=== PATIENT | male | born 1975 | race Caucasian/White ===

== ENCOUNTER 2021-05-15 12:35 | Inpatient (IN) | payer OTHER ==
[2021-05-15 13:42] VITALS: BMI 22.4
[2021-05-15] MEDS ORDERED: ACETAMINOPHEN 325 MG TABLET (FP) PO PRN (14:03)
[2021-05-15] MEDS ORDERED: MAGNESIUM HYDROX 2400MG/30ML ORAL SUSPENSION 30 ML CUP PO PRN (14:03)
[2021-05-15] MEDS ORDERED: MAGNESIUM CITRATE 300 ML BOTTLE PO PRN (14:03)
[2021-05-15] MEDS ORDERED: LOPERAMIDE HCL 2 MG CAPSULE PO PRN (14:03)
[2021-05-15] MEDS ORDERED: NICOTINE 10 MG CARTRIDGE (INHALER) IH PRN (14:03)
[2021-05-15] MEDS ORDERED: guaiFENesin 200 MG/10 ML 10 ML UNIT-DOSE CUPS PO PRN (14:03)
[2021-05-15] MEDS ORDERED: P-EPHED 60MG/TRIPROLIDI 2.5MG TABLET PO PRN (14:03)
[2021-05-15] MEDS ORDERED: MAG HYDROX/AL HYDROX/SIMETH 30 ML UNIT-DOSE CUP PO PRN (14:03)
[2021-05-15] MEDS: hydrOXYzine PAMOATE 25 MG CAPSULE (FP) PO SCH ×2 (19:10→22:18)
[2021-05-15] MEDS: THIAMINE HCL 100 MG TABLET (FP) PO SCH (22:18)
[2021-05-15] MEDS: MELATONIN 5 MG TABLETS PO SCH (22:18)
[2021-05-16] MEDS: hydrOXYzine PAMOATE 25 MG CAPSULE (FP) PO SCH (06:23)
[2021-05-16] MEDS ORDERED: methaDONE HCL 10 MG TABLET PO SCH (06:30)
[2021-05-16] MEDS ORDERED: methaDONE HCL 40 MG DISPERSABLE TABLET ONE (06:45)
[2021-05-16] MEDS ORDERED: methaDONE HCL 10 MG TABLET ONE (06:45)
[2021-05-16] MEDS: PRENATAL VITAMINS W/ FOLIC ACID TABLET (FP) PO SCH (09:20)
[2021-05-16] MEDS: NICOTINE 7 MG/24 HOURS TOPICAL PATCH TD SCH (09:22)
[2021-05-16 11:05] LABS: HEMATOCRIT 44.4 % (35.4-49); HEMOGLOBIN 14.9 GM/dL (11.7-16.9); MCHC 33.5 g/dl (32.0-35.9); MEAN CELL VOLUME 83.4 fl (80-96); MEAN PLT VOLUME 7.6 fl (7.5-11.1); PLATELET COUNT 1017 10^3/uL (134-434); RBC 5.32 M/mm3 (4.00-5.60); RDW 15.2 % (11.9-15.9); WHITE BLOOD COUNT 13.3 K/mm3 (4.0-10.0)
[2021-05-16 11:08] LABS: ALBUMIN 3.3 g/dl (3.4-5.0)
[2021-05-16 11:09] LABS: CALCIUM 9.7 mg/dL (8.5-10.1)
[2021-05-16 11:13] LABS: BILIRUBIN,TOTAL 0.5 mg/dL (0.2-1); TOT PROT 7.7 g/dl (6.4-8.2)
[2021-05-16] MEDS ORDERED: TUBERCULIN PPD 5 TU/0.1ML VIAL ID ONE (11:34)
[2021-05-16 13:13] LABS: SYPHILIS W/ RPR CONF NON-REACTIVE (NONREACTIVE)
[2021-05-16] MEDS: THIAMINE HCL 100 MG TABLET (FP) PO SCH (21:15)
[2021-05-16] MEDS: MELATONIN 5 MG TABLETS PO SCH (21:15)
[2021-05-17] MEDS ORDERED: methaDONE HCL 40 MG DISPERSABLE TABLET ONE (03:08)
[2021-05-17] MEDS ORDERED: methaDONE HCL 10 MG TABLET ONE (03:08)
[2021-05-17] MEDS: NICOTINE 7 MG/24 HOURS TOPICAL PATCH TD SCH (09:45)
[2021-05-17] MEDS: PRENATAL VITAMINS W/ FOLIC ACID TABLET (FP) PO SCH (09:45)
[2021-05-17] MEDS ORDERED: MENTHOL/PHENOL 1 EACH UD MM PRN (10:41)
[2021-05-17] MEDS: METHOCARBAMOL 500 MG TABLET PO PRN (17:12)
[2021-05-17 17:51] LABS: URINE APPEARANCE CLEAR; URINE BILIRUBIN NEGATIVE (NEGATIVE); URINE COLOR YELLOW; URINE GLUCOSE (UA) NEGATIVE (NEGATIVE); URINE KETONE NEGATIVE (NEGATIVE); URINE LEUK ESTERASE NEGATIVE (NEGATIVE); URINE NITRITE NEGATIVE (NEGATIVE); URINE PROTEIN NEGATIVE (NEGATIVE); URINE UROBILINOGEN 0.2 mg/dL (0.2-1.0)
[2021-05-17] MEDS: MELATONIN 5 MG TABLETS PO SCH (21:12)
[2021-05-17] MEDS: THIAMINE HCL 100 MG TABLET (FP) PO SCH (21:12)
[2021-05-17] MEDS: hydrOXYzine PAMOATE 25 MG CAPSULE (FP) PO PRN (21:13)
[2021-05-18] MEDS ORDERED: methaDONE HCL 10 MG TABLET ONE (03:47)
[2021-05-18] MEDS ORDERED: methaDONE HCL 40 MG DISPERSABLE TABLET ONE (03:47)
[2021-05-18] MEDS: PRENATAL VITAMINS W/ FOLIC ACID TABLET (FP) PO SCH (09:26)
[2021-05-18] MEDS: NICOTINE 7 MG/24 HOURS TOPICAL PATCH TD SCH (09:27)
[2021-05-18] MEDS: METHOCARBAMOL 500 MG TABLET PO PRN ×2 (09:27→17:33)
[2021-05-18 10:34] LABS: BASO % 0.8 % (0-2.0); EOS % 3.2 % (0-4.5); HEMATOCRIT 44.2 % (35.4-49); HEMOGLOBIN 14.9 GM/dL (11.7-16.9); LYMPH % 35.7 % (8-40); MCH 27.6 pg (25.7-33.7); MCHC 33.7 g/dl (32.0-35.9); MEAN PLT VOLUME 7.4 fl (7.5-11.1); MONO % 11.1 % (3.8-10.2); NEUT % 49.2 % (42.8-82.8); PLATELET COUNT 947 10^3/uL (134-434); RBC 5.39 M/mm3 (4.00-5.60); RDW 15.4 % (11.9-15.9); WHITE BLOOD COUNT 9.8 K/mm3 (4.0-10.0)
[2021-05-18] MEDS ORDERED: PT OWN MED DRAWER 7, Y5N ONE (15:15)
[2021-05-18] MEDS: MUPIROCIN 2% TOPICAL OINTMENT 22 GM TUBE TP SCH ×2 (15:16→23:32)
[2021-05-18] MEDS: THIAMINE HCL 100 MG TABLET (FP) PO SCH (21:12)
[2021-05-18] MEDS: hydrOXYzine PAMOATE 25 MG CAPSULE (FP) PO PRN (21:12)
[2021-05-18] MEDS: MELATONIN 5 MG TABLETS PO SCH (21:12)
[2021-05-19] MEDS ORDERED: methaDONE HCL 10 MG TABLET ONE (03:04)
[2021-05-19] MEDS ORDERED: methaDONE HCL 40 MG DISPERSABLE TABLET ONE (03:04)
[2021-05-19] MEDS: PRENATAL VITAMINS W/ FOLIC ACID TABLET (FP) PO SCH (09:38)
[2021-05-19] MEDS: NICOTINE 7 MG/24 HOURS TOPICAL PATCH TD SCH (09:38)
[2021-05-19] MEDS: MUPIROCIN 2% TOPICAL OINTMENT 22 GM TUBE TP SCH ×2 (09:38→21:29)
[2021-05-19] MEDS: METHOCARBAMOL 500 MG TABLET PO PRN ×2 (09:39→21:29)
[2021-05-19] MEDS: MELATONIN 5 MG TABLETS PO SCH (21:29)
[2021-05-19] MEDS: THIAMINE HCL 100 MG TABLET (FP) PO SCH (21:29)
[2021-05-19] MEDS: hydrOXYzine PAMOATE 25 MG CAPSULE (FP) PO PRN (21:30)
[2021-05-20] MEDS ORDERED: methaDONE HCL 10 MG TABLET ONE (03:10)
[2021-05-20] MEDS ORDERED: methaDONE HCL 40 MG DISPERSABLE TABLET ONE (03:10)
[2021-05-20] MEDS: PRENATAL VITAMINS W/ FOLIC ACID TABLET (FP) PO SCH (09:59)
[2021-05-20] MEDS: NICOTINE 7 MG/24 HOURS TOPICAL PATCH TD SCH (09:59)
[2021-05-20] MEDS: METHOCARBAMOL 500 MG TABLET PO PRN ×2 (09:59→18:07)
[2021-05-20] MEDS: MUPIROCIN 2% TOPICAL OINTMENT 22 GM TUBE TP SCH ×2 (10:00→21:09)
[2021-05-20] MEDS: CLINDAMYCIN HCL 150 MG CAPSULE (FP) PO SCH ×2 (14:26→18:07)
[2021-05-20] MEDS: SULFAMETHOXAZOLE/TRIMETHOPRIM 800MG/160MG D.S. TABLET PO SCH ×2 (14:26→21:08)
[2021-05-20] MEDS: IBUPROFEN 400 MG TABLET (FP) PO PRN (18:07)
[2021-05-20] MEDS: THIAMINE HCL 100 MG TABLET (FP) PO SCH (21:08)
[2021-05-20] MEDS: hydrOXYzine PAMOATE 25 MG CAPSULE (FP) PO PRN (21:08)
[2021-05-20] MEDS: MELATONIN 5 MG TABLETS PO SCH (21:08)
[2021-05-21] MEDS: CLINDAMYCIN HCL 150 MG CAPSULE (FP) PO SCH ×5 (00:23→23:06)
[2021-05-21] MEDS ORDERED: methaDONE HCL 10 MG TABLET ONE (02:50)
[2021-05-21] MEDS ORDERED: methaDONE HCL 40 MG DISPERSABLE TABLET ONE (02:50)
[2021-05-21] MEDS: SULFAMETHOXAZOLE/TRIMETHOPRIM 800MG/160MG D.S. TABLET PO SCH ×2 (09:54→21:08)
[2021-05-21] MEDS: PRENATAL VITAMINS W/ FOLIC ACID TABLET (FP) PO SCH (09:55)
[2021-05-21] MEDS: IBUPROFEN 400 MG TABLET (FP) PO PRN ×2 (09:59→17:50)
[2021-05-21] MEDS: METHOCARBAMOL 500 MG TABLET PO PRN ×2 (10:01→17:50)
[2021-05-21] MEDS: MUPIROCIN 2% TOPICAL OINTMENT 22 GM TUBE TP SCH ×2 (10:02→22:27)
[2021-05-21] MEDS: NICOTINE 7 MG/24 HOURS TOPICAL PATCH TD SCH (10:03)
[2021-05-21] MEDS: BACITRACIN 15 GM TUBE TOPICAL OINTMENT TP SCH ×2 (13:07→21:03)
[2021-05-21] MEDS: THIAMINE HCL 100 MG TABLET (FP) PO SCH (21:03)
[2021-05-21] MEDS: MELATONIN 5 MG TABLETS PO SCH (21:04)
[2021-05-21] MEDS: hydrOXYzine PAMOATE 25 MG CAPSULE (FP) PO PRN (21:07)
[2021-05-22] MEDS ORDERED: methaDONE HCL 10 MG TABLET ONE (03:48)
[2021-05-22] MEDS ORDERED: methaDONE HCL 40 MG DISPERSABLE TABLET ONE (03:48)
[2021-05-22] MEDS: CLINDAMYCIN HCL 150 MG CAPSULE (FP) PO SCH ×3 (06:02→17:19)
[2021-05-22] MEDS: BACITRACIN 15 GM TUBE TOPICAL OINTMENT TP SCH ×2 (09:34→21:23)
[2021-05-22] MEDS: SULFAMETHOXAZOLE/TRIMETHOPRIM 800MG/160MG D.S. TABLET PO SCH ×2 (09:34→21:22)
[2021-05-22] MEDS: NICOTINE 7 MG/24 HOURS TOPICAL PATCH TD SCH (09:34)
[2021-05-22] MEDS: PRENATAL VITAMINS W/ FOLIC ACID TABLET (FP) PO SCH (09:34)
[2021-05-22] MEDS: MUPIROCIN 2% TOPICAL OINTMENT 22 GM TUBE TP SCH ×2 (09:35→23:25)
[2021-05-22] MEDS: METHOCARBAMOL 500 MG TABLET PO PRN ×2 (09:36→17:19)
[2021-05-22] MEDS: THIAMINE HCL 100 MG TABLET (FP) PO SCH (21:22)
[2021-05-22] MEDS: MELATONIN 5 MG TABLETS PO SCH (21:24)
[2021-05-22] MEDS: hydrOXYzine PAMOATE 25 MG CAPSULE (FP) PO PRN (21:24)
[2021-05-23] MEDS: CLINDAMYCIN HCL 150 MG CAPSULE (FP) PO SCH ×2 (01:44→06:11)
[2021-05-23] MEDS ORDERED: methaDONE HCL 10 MG TABLET ONE (03:18)
[2021-05-23] MEDS ORDERED: methaDONE HCL 40 MG DISPERSABLE TABLET ONE (03:19)
[2021-05-23 07:19] VITALS: BP 132/85; PULSE 76; TEMP 97.9
[2021-05-23] MEDS: NICOTINE 7 MG/24 HOURS TOPICAL PATCH TD SCH (10:11)
[2021-05-23] MEDS: PRENATAL VITAMINS W/ FOLIC ACID TABLET (FP) PO SCH (10:11)
[2021-05-23] MEDS: MUPIROCIN 2% TOPICAL OINTMENT 22 GM TUBE TP SCH (10:11)
[2021-05-23] MEDS: BACITRACIN 15 GM TUBE TOPICAL OINTMENT TP SCH (10:11)
[2021-05-23] MEDS: SULFAMETHOXAZOLE/TRIMETHOPRIM 800MG/160MG D.S. TABLET PO SCH (10:11)
[2021-05-23] MEDS: METHOCARBAMOL 500 MG TABLET PO PRN (10:13)
== END 2021-05-23 11:20 | disposition home or self-care (01) | DRG 772 ==
LOC: YASAS 12:35 → Y3N 14:00 → Y5N 14:14
PROVIDERS: ADMIT Allergy & Immunology; ATTEND Allergy & Immunology
PROC: HZ42ZZZ Group Counseling for Substance Abuse Treatment, Cognitive-Behavioral (ICD-10-PCS; principal; 2021-05-15)
DX: F11.20 Opioid dependence, uncomplicated (principal); F14.20 Cocaine dependence, uncomplicated; F17.210 Nicotine dependence, cigarettes, uncomplicated; L03.114 Cellulitis of left upper limb; S90.422A Blister (nonthermal), left great toe, initial encounter; L03.032 Cellulitis of left toe; X58.XXXA Exposure to other specified factors, initial encounter; Z86.59 Personal history of other mental and behavioral disorders
CPT/HCPCS: 36415; 80053; 81003; 85025; 85027; 86780; 86803; 87811; 93005; 93010; C9803; U0003; U0005

== ENCOUNTER 2021-06-02 14:26 | Inpatient (IN) | payer OTHER ==
[2021-06-02 14:51] VITALS: BMI 23.1
[2021-06-02] MEDS ORDERED: MAG HYDROX/AL HYDROX/SIMETH 30 ML UNIT-DOSE CUP PO PRN ×2 (17:59)
[2021-06-02] MEDS ORDERED: NALOXONE (NARCAN) HCL 4 MG/0.1 ML SPRAY NS PRN (17:59)
[2021-06-02] MEDS ORDERED: NICOTINE 10 MG CARTRIDGE (INHALER) IH PRN (17:59)
[2021-06-02] MEDS ORDERED: MENTHOL/PHENOL 1 EACH UD MM PRN (17:59)
[2021-06-02] MEDS ORDERED: ACETAMINOPHEN 325 MG TABLET (FP) PO PRN ×2 (17:59)
[2021-06-02] MEDS ORDERED: MAGNESIUM CITRATE 300 ML BOTTLE PO PRN ×2 (17:59)
[2021-06-02] MEDS ORDERED: IBUPROFEN 400 MG TABLET (FP) PO PRN ×2 (17:59)
[2021-06-02] MEDS ORDERED: P-EPHED 60MG/TRIPROLIDI 2.5MG TABLET PO PRN ×2 (17:59)
[2021-06-02] MEDS ORDERED: hydrOXYzine PAMOATE 25 MG CAPSULE (FP) PO PRN (17:59)
[2021-06-02] MEDS ORDERED: LOPERAMIDE HCL 2 MG CAPSULE PO PRN ×2 (17:59)
[2021-06-02] MEDS ORDERED: MAGNESIUM HYDROX 2400MG/30ML ORAL SUSPENSION 30 ML CUP PO PRN ×2 (17:59)
[2021-06-02] MEDS ORDERED: guaiFENesin 200 MG/10 ML 10 ML UNIT-DOSE CUPS PO PRN ×2 (17:59)
[2021-06-02] MEDS: MELATONIN 5 MG TABLETS PO SCH ×2 (21:39)
[2021-06-02] MEDS: THIAMINE HCL 100 MG TABLET (FP) PO SCH ×2 (21:39)
[2021-06-02] MEDS: CEPHALEXIN MONOHYDRATE 500 MG CAPSULE (UD) PO SCH (23:09)
[2021-06-03] MEDS ORDERED: methaDONE HCL 10 MG TABLET ONE (04:18)
[2021-06-03] MEDS ORDERED: methaDONE HCL 40 MG DISPERSABLE TABLET ONE (04:18)
[2021-06-03] MEDS ORDERED: methaDONE HCL 10 MG TABLET PO SCH (06:00)
[2021-06-03] MEDS: CEPHALEXIN MONOHYDRATE 500 MG CAPSULE (UD) PO SCH ×4 (06:29→23:04)
[2021-06-03] MEDS: NICOTINE 7 MG/24 HOURS TOPICAL PATCH TD SCH (10:29)
[2021-06-03] MEDS: PRENATAL VITAMINS W/ FOLIC ACID TABLET (FP) PO SCH ×2 (10:29→10:30)
[2021-06-03 10:55] LABS: HEMATOCRIT 44.3 % (35.4-49); MCH 28.1 pg (25.7-33.7); MCHC 33.9 g/dl (32.0-35.9); MEAN CELL VOLUME 82.8 fl (80-96); MEAN PLT VOLUME 7.6 fl (7.5-11.1); PLATELET COUNT 892 10^3/uL (134-434); RBC 5.35 M/mm3 (4.00-5.60); RDW 15.2 % (11.9-15.9); WHITE BLOOD COUNT 8.7 K/mm3 (4.0-10.0)
[2021-06-03 11:16] LABS: CALCIUM 9.6 mg/dL (8.5-10.1)
[2021-06-03 11:17] LABS: ALBUMIN 3.3 g/dl (3.4-5.0); BLOOD UREA NITROGEN 18.4 mg/dL (7-18)
[2021-06-03 11:19] LABS: CREATININE 0.8 mg/dL (0.55-1.3)
[2021-06-03 11:20] LABS: TOT PROT 7.9 g/dl (6.4-8.2)
[2021-06-03 11:23] LABS: BILIRUBIN,TOTAL 0.2 mg/dL (0.2-1)
[2021-06-03] MEDS ORDERED: SODIUM POLYSTYRENE SULFONATE 15 GM/60 ML BOTTLE PO ONE (11:24)
[2021-06-03 17:42] LABS: SYPHILIS W/ RPR CONF NON-REACTIVE (NONREACTIVE)
[2021-06-03] MEDS: THIAMINE HCL 100 MG TABLET (FP) PO SCH ×2 (21:26→21:29)
[2021-06-03] MEDS: MELATONIN 5 MG TABLETS PO SCH ×2 (21:26→21:29)
[2021-06-03] MEDS: NICOTINE 10 MG CARTRIDGE (INHALER) IH PRN (21:27)
[2021-06-04] MEDS ORDERED: methaDONE HCL 10 MG TABLET ONE (02:58)
[2021-06-04] MEDS ORDERED: methaDONE HCL 40 MG DISPERSABLE TABLET ONE (02:58)
[2021-06-04] MEDS: CEPHALEXIN MONOHYDRATE 500 MG CAPSULE (UD) PO SCH ×4 (06:07→23:14)
[2021-06-04 10:55] LABS: PH,URINE 6.5 (5.0-8.0); URINE APPEARANCE CLEAR; URINE BILIRUBIN NEGATIVE (NEGATIVE); URINE COLOR YELLOW; URINE GLUCOSE (UA) NEGATIVE (NEGATIVE); URINE KETONE TRACE (NEGATIVE); URINE LEUK ESTERASE NEGATIVE (NEGATIVE); URINE NITRITE NEGATIVE (NEGATIVE); URINE PROTEIN NEGATIVE (NEGATIVE); URINE UROBILINOGEN 0.2 mg/dL (0.2-1.0)
[2021-06-04 10:56] LABS: HEMATOCRIT 42.8 % (35.4-49); HEMOGLOBIN 14.5 GM/dL (11.7-16.9); MCH 28.1 pg (25.7-33.7); MCHC 33.8 g/dl (32.0-35.9); MEAN CELL VOLUME 83.2 fl (80-96); MEAN PLT VOLUME 7.5 fl (7.5-11.1); PLATELET COUNT 932 10^3/uL (134-434); RBC 5.15 M/mm3 (4.00-5.60); RDW 15.1 % (11.9-15.9); WHITE BLOOD COUNT 9.8 K/mm3 (4.0-10.0)
[2021-06-04] MEDS: PRENATAL VITAMINS W/ FOLIC ACID TABLET (FP) PO SCH ×2 (11:41→11:42)
[2021-06-04] MEDS: NICOTINE 7 MG/24 HOURS TOPICAL PATCH TD SCH ×2 (11:41→14:08)
[2021-06-04 12:43] LABS: ANISOCYTOSIS 0; HELMET CELLS 0; HOWELL-JOLLY BODIES 0; MACROCYTOSIS 0; OVALOCYTE 0; PLATELET ESTIMATE INCREASED; ROULEAU 0; SICKELED CELLS 0; TARGET CELLS 0; TEAR DROP CELLS 0; TOXIC GRANULATION 0
[2021-06-04] MEDS: NICOTINE 10 MG CARTRIDGE (INHALER) IH PRN (14:08)
[2021-06-04] MEDS: MELATONIN 5 MG TABLETS PO SCH ×2 (21:32→21:33)
[2021-06-04] MEDS: THIAMINE HCL 100 MG TABLET (FP) PO SCH ×2 (21:32→21:33)
[2021-06-05] MEDS ORDERED: methaDONE HCL 10 MG TABLET ONE (06:06)
[2021-06-05] MEDS ORDERED: methaDONE HCL 40 MG DISPERSABLE TABLET ONE (06:06)
[2021-06-05] MEDS: CEPHALEXIN MONOHYDRATE 500 MG CAPSULE (UD) PO SCH ×4 (06:14→23:00)
[2021-06-05] MEDS: NICOTINE 7 MG/24 HOURS TOPICAL PATCH TD SCH (10:22)
[2021-06-05] MEDS: PRENATAL VITAMINS W/ FOLIC ACID TABLET (FP) PO SCH ×2 (10:22→10:23)
[2021-06-05] MEDS: MELATONIN 5 MG TABLETS PO SCH ×2 (21:05→21:28)
[2021-06-05] MEDS: THIAMINE HCL 100 MG TABLET (FP) PO SCH ×2 (21:05→21:28)
[2021-06-06] MEDS ORDERED: methaDONE HCL 40 MG DISPERSABLE TABLET ONE (03:04)
[2021-06-06] MEDS ORDERED: methaDONE HCL 10 MG TABLET ONE (03:04)
[2021-06-06] MEDS: CEPHALEXIN MONOHYDRATE 500 MG CAPSULE (UD) PO SCH ×4 (06:09→23:19)
[2021-06-06] MEDS: PRENATAL VITAMINS W/ FOLIC ACID TABLET (FP) PO SCH ×2 (11:05→11:06)
[2021-06-06] MEDS: NICOTINE 7 MG/24 HOURS TOPICAL PATCH TD SCH (11:06)
[2021-06-06] MEDS: THIAMINE HCL 100 MG TABLET (FP) PO SCH (21:18)
[2021-06-06] MEDS: MELATONIN 5 MG TABLETS PO SCH (21:18)
[2021-06-07] MEDS ORDERED: methaDONE HCL 10 MG TABLET ONE (03:13)
[2021-06-07] MEDS ORDERED: methaDONE HCL 40 MG DISPERSABLE TABLET ONE (03:13)
[2021-06-07] MEDS: CEPHALEXIN MONOHYDRATE 500 MG CAPSULE (UD) PO SCH ×4 (06:04→23:14)
[2021-06-07] MEDS: PRENATAL VITAMINS W/ FOLIC ACID TABLET (FP) PO SCH (10:31)
[2021-06-07] MEDS: NICOTINE 7 MG/24 HOURS TOPICAL PATCH TD SCH (10:31)
[2021-06-07] MEDS: NICOTINE 10 MG CARTRIDGE (INHALER) IH PRN (10:32)
[2021-06-07] MEDS: THIAMINE HCL 100 MG TABLET (FP) PO SCH (21:07)
[2021-06-07] MEDS: MELATONIN 5 MG TABLETS PO SCH (21:08)
[2021-06-07] MEDS: hydrOXYzine PAMOATE 25 MG CAPSULE (FP) PO PRN (21:08)
[2021-06-08] MEDS ORDERED: methaDONE HCL 40 MG DISPERSABLE TABLET ONE (03:03)
[2021-06-08] MEDS ORDERED: methaDONE HCL 10 MG TABLET ONE (03:04)
[2021-06-08] MEDS: CEPHALEXIN MONOHYDRATE 500 MG CAPSULE (UD) PO SCH ×4 (06:04→23:10)
[2021-06-08] MEDS: NICOTINE 21 MG/24 HOURS TOPICAL PATCH TD SCH (10:08)
[2021-06-08] MEDS: PRENATAL VITAMINS W/ FOLIC ACID TABLET (FP) PO SCH (10:09)
[2021-06-08] MEDS: NICOTINE 10 MG CARTRIDGE (INHALER) IH PRN ×2 (10:09→21:16)
[2021-06-08] MEDS: THIAMINE HCL 100 MG TABLET (FP) PO SCH (21:16)
[2021-06-08] MEDS: MELATONIN 5 MG TABLETS PO SCH (21:16)
[2021-06-08] MEDS: hydrOXYzine PAMOATE 25 MG CAPSULE (FP) PO PRN (21:16)
[2021-06-09] MEDS ORDERED: methaDONE HCL 10 MG TABLET ONE (03:51)
[2021-06-09] MEDS ORDERED: methaDONE HCL 40 MG DISPERSABLE TABLET ONE (03:51)
[2021-06-09] MEDS: CEPHALEXIN MONOHYDRATE 500 MG CAPSULE (UD) PO SCH ×3 (06:04→18:24)
[2021-06-09] MEDS: NICOTINE 10 MG CARTRIDGE (INHALER) IH PRN (10:12)
[2021-06-09] MEDS: PRENATAL VITAMINS W/ FOLIC ACID TABLET (FP) PO SCH (10:12)
[2021-06-09] MEDS: NICOTINE 21 MG/24 HOURS TOPICAL PATCH TD SCH (10:12)
[2021-06-09] MEDS: hydrOXYzine PAMOATE 25 MG CAPSULE (FP) PO PRN (21:20)
[2021-06-09] MEDS: MELATONIN 5 MG TABLETS PO SCH (21:20)
[2021-06-09] MEDS: THIAMINE HCL 100 MG TABLET (FP) PO SCH (21:20)
[2021-06-10] MEDS ORDERED: methaDONE HCL 10 MG TABLET ONE (03:11)
[2021-06-10] MEDS ORDERED: methaDONE HCL 40 MG DISPERSABLE TABLET ONE (03:11)
[2021-06-10] MEDS: PRENATAL VITAMINS W/ FOLIC ACID TABLET (FP) PO SCH (09:50)
[2021-06-10] MEDS: NICOTINE 10 MG CARTRIDGE (INHALER) IH PRN (09:53)
[2021-06-10] MEDS: NICOTINE 21 MG/24 HOURS TOPICAL PATCH TD SCH (09:53)
[2021-06-10] MEDS: THIAMINE HCL 100 MG TABLET (FP) PO SCH (21:33)
[2021-06-10] MEDS: hydrOXYzine PAMOATE 25 MG CAPSULE (FP) PO PRN (21:33)
[2021-06-10] MEDS: MELATONIN 5 MG TABLETS PO SCH (21:33)
[2021-06-11] MEDS ORDERED: methaDONE HCL 40 MG DISPERSABLE TABLET ONE (03:09)
[2021-06-11] MEDS ORDERED: methaDONE HCL 10 MG TABLET ONE (03:09)
[2021-06-11] MEDS: PRENATAL VITAMINS W/ FOLIC ACID TABLET (FP) PO SCH (09:41)
[2021-06-11] MEDS: NICOTINE 21 MG/24 HOURS TOPICAL PATCH TD SCH (09:41)
[2021-06-11] MEDS: hydrOXYzine PAMOATE 25 MG CAPSULE (FP) PO PRN (21:06)
[2021-06-11] MEDS: MELATONIN 5 MG TABLETS PO SCH (21:06)
[2021-06-11] MEDS: THIAMINE HCL 100 MG TABLET (FP) PO SCH (21:06)
[2021-06-11] MEDS: NICOTINE 10 MG CARTRIDGE (INHALER) IH PRN (21:06)
[2021-06-12] MEDS ORDERED: methaDONE HCL 10 MG TABLET ONE (05:53)
[2021-06-12] MEDS ORDERED: methaDONE HCL 40 MG DISPERSABLE TABLET ONE (05:53)
[2021-06-12] MEDS: NICOTINE 10 MG CARTRIDGE (INHALER) IH PRN ×3 (06:04→21:23)
[2021-06-12] MEDS: hydrOXYzine PAMOATE 25 MG CAPSULE (FP) PO PRN ×2 (09:43→21:23)
[2021-06-12] MEDS: NICOTINE 21 MG/24 HOURS TOPICAL PATCH TD SCH (09:43)
[2021-06-12] MEDS: PRENATAL VITAMINS W/ FOLIC ACID TABLET (FP) PO SCH (09:43)
[2021-06-12] MEDS: THIAMINE HCL 100 MG TABLET (FP) PO SCH (21:23)
[2021-06-12] MEDS: MELATONIN 5 MG TABLETS PO SCH (21:23)
[2021-06-13] MEDS ORDERED: methaDONE HCL 40 MG DISPERSABLE TABLET ONE (03:13)
[2021-06-13] MEDS ORDERED: methaDONE HCL 10 MG TABLET ONE (03:13)
[2021-06-13] MEDS: NICOTINE 10 MG CARTRIDGE (INHALER) IH PRN ×2 (06:06→09:51)
[2021-06-13] MEDS: PRENATAL VITAMINS W/ FOLIC ACID TABLET (FP) PO SCH (09:50)
[2021-06-13] MEDS: NICOTINE 21 MG/24 HOURS TOPICAL PATCH TD SCH (09:50)
[2021-06-13] MEDS: MELATONIN 5 MG TABLETS PO SCH (21:11)
[2021-06-13] MEDS: THIAMINE HCL 100 MG TABLET (FP) PO SCH (21:11)
[2021-06-13] MEDS: hydrOXYzine PAMOATE 25 MG CAPSULE (FP) PO PRN (21:11)
[2021-06-14] MEDS ORDERED: methaDONE HCL 40 MG DISPERSABLE TABLET ONE (03:07)
[2021-06-14] MEDS ORDERED: methaDONE HCL 10 MG TABLET ONE (03:08)
[2021-06-14] MEDS: PRENATAL VITAMINS W/ FOLIC ACID TABLET (FP) PO SCH (10:09)
[2021-06-14] MEDS: NICOTINE 10 MG CARTRIDGE (INHALER) IH PRN ×2 (10:09→21:06)
[2021-06-14] MEDS: NICOTINE 21 MG/24 HOURS TOPICAL PATCH TD SCH (10:09)
[2021-06-14] MEDS: hydrOXYzine PAMOATE 25 MG CAPSULE (FP) PO PRN (21:06)
[2021-06-14] MEDS: MELATONIN 5 MG TABLETS PO SCH (21:06)
[2021-06-14] MEDS: THIAMINE HCL 100 MG TABLET (FP) PO SCH (21:06)
[2021-06-15] MEDS ORDERED: methaDONE HCL 40 MG DISPERSABLE TABLET ONE (03:09)
[2021-06-15] MEDS ORDERED: methaDONE HCL 10 MG TABLET ONE (03:10)
[2021-06-15] MEDS: NICOTINE 10 MG CARTRIDGE (INHALER) IH PRN (06:24)
[2021-06-15 06:57] VITALS: BP 127/80; PULSE 85; TEMP 97.9
== END 2021-06-15 09:30 | disposition home or self-care (01) | DRG 772 ==
LOC: YASAS 14:26 → Y3W 17:47
PROVIDERS: ADMIT Allergy & Immunology; ATTEND Allergy & Immunology
PROC: HZ42ZZZ Group Counseling for Substance Abuse Treatment, Cognitive-Behavioral (ICD-10-PCS; principal; 2021-06-02)
DX: F10.20 Alcohol dependence, uncomplicated (principal); F11.20 Opioid dependence, uncomplicated; F14.20 Cocaine dependence, uncomplicated; F17.210 Nicotine dependence, cigarettes, uncomplicated; L90.5 Scar conditions and fibrosis of skin; M54.50 Low back pain, unspecified; G89.29 Other chronic pain; L03.119 Cellulitis of unspecified part of limb
CPT/HCPCS: 36415; 80053; 81003; 84132; 85025; 85027; 86780; 86803; C9803; U0003; U0005

== ENCOUNTER 2022-01-08 18:49 | Inpatient (IN) | payer OTHER ==
[2022-01-08 22:00] VITALS: BMI 21.2
[2022-01-08] MEDS ORDERED: guaiFENesin 200 MG/10 ML 10 ML UNIT-DOSE CUPS PO PRN (23:22)
[2022-01-08] MEDS ORDERED: P-EPHED 60MG/TRIPROLIDI 2.5MG TABLET PO PRN (23:22)
[2022-01-08] MEDS ORDERED: ACETAMINOPHEN 325 MG TABLET (FP) PO PRN (23:22)
[2022-01-08] MEDS ORDERED: MAGNESIUM CITRATE 300 ML BOTTLE PO PRN (23:22)
[2022-01-08] MEDS ORDERED: MAG HYDROX/AL HYDROX/SIMETH 30 ML UNIT-DOSE CUP PO PRN (23:22)
[2022-01-08] MEDS ORDERED: LOPERAMIDE HCL 2 MG CAPSULE PO PRN (23:22)
[2022-01-09] MEDS: MELATONIN 5 MG TABLETS PO SCH ×2 (03:32→21:05)
[2022-01-09] MEDS ORDERED: methaDONE HCL 10 MG TABLET PO SCH (07:45)
[2022-01-09] MEDS ORDERED: methaDONE HCL 10 MG TABLET ONE (08:45)
[2022-01-09] MEDS ORDERED: methaDONE HCL 40 MG DISPERSABLE TABLET ONE (08:46)
[2022-01-09] MEDS: PRENATAL VITAMINS W/ FOLIC ACID TABLET (FP) PO SCH (09:17)
[2022-01-09] MEDS: NICOTINE 21 MG/24 HOURS TOPICAL PATCH TD SCH (09:18)
[2022-01-09 11:48] LABS: HEMATOCRIT 44.8 % (35.4-49); HEMOGLOBIN 14.9 GM/dL (11.7-16.9); MCH 27.5 pg (25.7-33.7); MCHC 33.3 g/dl (32.0-35.9); MEAN CELL VOLUME 82.4 fl (80-96); PLATELET COUNT 667 10^3/uL (134-434); RBC 5.44 M/mm3 (4.00-5.60); RDW 16.6 % (11.9-15.9); WHITE BLOOD COUNT 6.8 K/mm3 (4.0-10.0)
[2022-01-09 12:30] LABS: ALBUMIN 3.4 g/dl (3.4-5.0); BLOOD UREA NITROGEN 9.4 mg/dL (7-18); CALCIUM 9.3 mg/dL (8.5-10.1)
[2022-01-09 12:34] LABS: CREATININE 0.8 mg/dL (0.55-1.3)
[2022-01-09 12:35] LABS: BILIRUBIN,TOTAL 0.9 mg/dL (0.2-1); TOT PROT 6.9 g/dl (6.4-8.2)
[2022-01-09] MEDS: THIAMINE HCL 100 MG TABLET (FP) PO SCH (21:05)
[2022-01-10] MEDS ORDERED: methaDONE HCL 10 MG TABLET ONE (03:08)
[2022-01-10] MEDS ORDERED: methaDONE HCL 40 MG DISPERSABLE TABLET ONE (03:08)
[2022-01-10] MEDS: PRENATAL VITAMINS W/ FOLIC ACID TABLET (FP) PO SCH (09:44)
[2022-01-10] MEDS: NICOTINE 21 MG/24 HOURS TOPICAL PATCH TD SCH (09:44)
[2022-01-10] MEDS: NICOTINE 10 MG CARTRIDGE (INHALER) IH PRN (09:45)
[2022-01-10 14:35] LABS: PH,URINE 5.5 (5.0-8.0); URINE APPEARANCE CLEAR; URINE BILIRUBIN NEGATIVE (NEGATIVE); URINE COLOR DK YELLOW; URINE GLUCOSE (UA) NEGATIVE (NEGATIVE); URINE KETONE NEGATIVE (NEGATIVE); URINE LEUK ESTERASE NEGATIVE (NEGATIVE); URINE NITRITE NEGATIVE (NEGATIVE); URINE PROTEIN NEGATIVE (NEGATIVE)
[2022-01-10] MEDS: ASPIRIN 81 MG CHEWABLE TABLETS PO SCH (16:55)
[2022-01-10] MEDS: THIAMINE HCL 100 MG TABLET (FP) PO SCH (21:14)
[2022-01-10] MEDS: MELATONIN 5 MG TABLETS PO SCH (21:14)
[2022-01-11] MEDS ORDERED: methaDONE HCL 10 MG TABLET ONE (03:22)
[2022-01-11] MEDS ORDERED: methaDONE HCL 40 MG DISPERSABLE TABLET ONE (03:22)
[2022-01-11] MEDS: PRENATAL VITAMINS W/ FOLIC ACID TABLET (FP) PO SCH (09:45)
[2022-01-11] MEDS: NICOTINE 21 MG/24 HOURS TOPICAL PATCH TD SCH (09:45)
[2022-01-11] MEDS: ASPIRIN 81 MG CHEWABLE TABLETS PO SCH (09:45)
[2022-01-11] MEDS: NICOTINE 10 MG CARTRIDGE (INHALER) IH PRN (09:47)
[2022-01-11] MEDS: MELATONIN 5 MG TABLETS PO SCH (21:12)
[2022-01-11] MEDS: THIAMINE HCL 100 MG TABLET (FP) PO SCH (21:12)
[2022-01-12] MEDS ORDERED: methaDONE HCL 40 MG DISPERSABLE TABLET ONE (03:42)
[2022-01-12] MEDS ORDERED: methaDONE HCL 10 MG TABLET ONE (03:42)
[2022-01-12] MEDS: NICOTINE 10 MG CARTRIDGE (INHALER) IH PRN (06:47)
[2022-01-12] MEDS: NICOTINE 21 MG/24 HOURS TOPICAL PATCH TD SCH (09:34)
[2022-01-12] MEDS: PRENATAL VITAMINS W/ FOLIC ACID TABLET (FP) PO SCH (09:34)
[2022-01-12] MEDS: ASPIRIN 81 MG CHEWABLE TABLETS PO SCH (09:34)
[2022-01-12 11:30] LABS: HIV INTERPRETATION NEGATIVE (NEGATIVE)
[2022-01-12] MEDS: THIAMINE HCL 100 MG TABLET (FP) PO SCH (21:15)
[2022-01-12] MEDS: MELATONIN 5 MG TABLETS PO SCH (21:15)
[2022-01-13] MEDS ORDERED: methaDONE HCL 10 MG TABLET ONE (03:05)
[2022-01-13] MEDS ORDERED: methaDONE HCL 40 MG DISPERSABLE TABLET ONE (03:06)
[2022-01-13] MEDS: PRENATAL VITAMINS W/ FOLIC ACID TABLET (FP) PO SCH (09:42)
[2022-01-13] MEDS: NICOTINE 21 MG/24 HOURS TOPICAL PATCH TD SCH (09:42)
[2022-01-13] MEDS: ASPIRIN 81 MG CHEWABLE TABLETS PO SCH (09:42)
[2022-01-13] MEDS: NICOTINE 10 MG CARTRIDGE (INHALER) IH PRN (09:43)
[2022-01-13] MEDS: THIAMINE HCL 100 MG TABLET (FP) PO SCH (21:18)
[2022-01-13] MEDS: MELATONIN 5 MG TABLETS PO SCH (21:18)
[2022-01-14] MEDS ORDERED: methaDONE HCL 40 MG DISPERSABLE TABLET ONE (03:06)
[2022-01-14] MEDS ORDERED: methaDONE HCL 10 MG TABLET ONE (03:06)
[2022-01-14] MEDS: PRENATAL VITAMINS W/ FOLIC ACID TABLET (FP) PO SCH (09:44)
[2022-01-14] MEDS: NICOTINE 21 MG/24 HOURS TOPICAL PATCH TD SCH (09:44)
[2022-01-14] MEDS: ASPIRIN 81 MG CHEWABLE TABLETS PO SCH (09:45)
[2022-01-14] MEDS: NICOTINE 10 MG CARTRIDGE (INHALER) IH PRN (09:45)
[2022-01-14] MEDS: THIAMINE HCL 100 MG TABLET (FP) PO SCH (21:26)
[2022-01-14] MEDS: MELATONIN 5 MG TABLETS PO SCH (21:26)
[2022-01-15] MEDS ORDERED: methaDONE HCL 40 MG DISPERSABLE TABLET ONE (03:22)
[2022-01-15] MEDS ORDERED: methaDONE HCL 10 MG TABLET ONE (03:22)
[2022-01-15] MEDS: NICOTINE 10 MG CARTRIDGE (INHALER) IH PRN (09:44)
[2022-01-15] MEDS: PRENATAL VITAMINS W/ FOLIC ACID TABLET (FP) PO SCH (09:44)
[2022-01-15] MEDS: NICOTINE 21 MG/24 HOURS TOPICAL PATCH TD SCH (09:44)
[2022-01-15] MEDS: ASPIRIN 81 MG CHEWABLE TABLETS PO SCH (10:01)
[2022-01-15] MEDS: THIAMINE HCL 100 MG TABLET (FP) PO SCH (21:17)
[2022-01-15] MEDS: MELATONIN 5 MG TABLETS PO SCH (21:18)
[2022-01-16] MEDS ORDERED: methaDONE HCL 10 MG TABLET ONE (04:11)
[2022-01-16] MEDS ORDERED: methaDONE HCL 40 MG DISPERSABLE TABLET ONE (04:12)
[2022-01-16] MEDS: PRENATAL VITAMINS W/ FOLIC ACID TABLET (FP) PO SCH (09:50)
[2022-01-16] MEDS: ASPIRIN 81 MG CHEWABLE TABLETS PO SCH (09:50)
[2022-01-16] MEDS: NICOTINE 21 MG/24 HOURS TOPICAL PATCH TD SCH (09:50)
[2022-01-16] MEDS: NICOTINE 10 MG CARTRIDGE (INHALER) IH PRN (09:53)
[2022-01-16] MEDS: THIAMINE HCL 100 MG TABLET (FP) PO SCH (21:12)
[2022-01-16] MEDS: MELATONIN 5 MG TABLETS PO SCH (21:12)
[2022-01-17] MEDS ORDERED: methaDONE HCL 10 MG TABLET ONE (03:07)
[2022-01-17] MEDS ORDERED: methaDONE HCL 40 MG DISPERSABLE TABLET ONE (03:07)
[2022-01-17] MEDS: PRENATAL VITAMINS W/ FOLIC ACID TABLET (FP) PO SCH (09:56)
[2022-01-17] MEDS: NICOTINE 21 MG/24 HOURS TOPICAL PATCH TD SCH (09:56)
[2022-01-17] MEDS: ASPIRIN 81 MG CHEWABLE TABLETS PO SCH (09:56)
[2022-01-17] MEDS: NICOTINE 10 MG CARTRIDGE (INHALER) IH PRN (09:56)
[2022-01-17] MEDS: MELATONIN 5 MG TABLETS PO SCH (21:24)
[2022-01-17] MEDS: THIAMINE HCL 100 MG TABLET (FP) PO SCH (21:24)
[2022-01-18] MEDS ORDERED: methaDONE HCL 40 MG DISPERSABLE TABLET ONE (03:30)
[2022-01-18] MEDS ORDERED: methaDONE HCL 10 MG TABLET ONE (03:30)
[2022-01-18] MEDS: NICOTINE 10 MG CARTRIDGE (INHALER) IH PRN (09:47)
[2022-01-18] MEDS: PRENATAL VITAMINS W/ FOLIC ACID TABLET (FP) PO SCH (09:47)
[2022-01-18] MEDS: NICOTINE 21 MG/24 HOURS TOPICAL PATCH TD SCH (09:47)
[2022-01-18] MEDS: ASPIRIN 81 MG CHEWABLE TABLETS PO SCH (09:47)
[2022-01-18 13:09] LABS: ALBUMIN 3.4 g/dl (3.4-5.0); BILIRUBIN,TOTAL 1.6 mg/dL (0.2-1); TOT PROT 7.4 g/dl (6.4-8.2)
[2022-01-18 13:18] LABS: BILIRUBIN,DIRECT 1.2 mg/dL (0.0-0.2)
[2022-01-18] MEDS: MELATONIN 5 MG TABLETS PO SCH (21:11)
[2022-01-18] MEDS: THIAMINE HCL 100 MG TABLET (FP) PO SCH (21:11)
[2022-01-19] MEDS ORDERED: methaDONE HCL 40 MG DISPERSABLE TABLET ONE ×2 (03:59→06:07)
[2022-01-19] MEDS ORDERED: methaDONE HCL 10 MG TABLET ONE ×2 (03:59→06:07)
[2022-01-19] MEDS: IBUPROFEN 400 MG TABLET (FP) PO PRN ×3 (06:02→19:03)
[2022-01-19] MEDS: PRENATAL VITAMINS W/ FOLIC ACID TABLET (FP) PO SCH (10:03)
[2022-01-19] MEDS: ASPIRIN 81 MG CHEWABLE TABLETS PO SCH (10:04)
[2022-01-19] MEDS: NICOTINE 21 MG/24 HOURS TOPICAL PATCH TD SCH (10:05)
[2022-01-19] MEDS: NICOTINE 10 MG CARTRIDGE (INHALER) IH PRN (10:06)
[2022-01-19] MEDS: MAGNESIUM HYDROX 2400MG/30ML ORAL SUSPENSION 30 ML CUP PO PRN (16:52)
[2022-01-19] MEDS: MELATONIN 5 MG TABLETS PO SCH (21:19)
[2022-01-19] MEDS: THIAMINE HCL 100 MG TABLET (FP) PO SCH (21:20)
[2022-01-20] MEDS: IBUPROFEN 400 MG TABLET (FP) PO PRN ×2 (01:15→07:14)
[2022-01-20] MEDS ORDERED: methaDONE HCL 40 MG DISPERSABLE TABLET ONE (04:04)
[2022-01-20] MEDS ORDERED: methaDONE HCL 10 MG TABLET ONE (04:04)
[2022-01-20] MEDS: PRENATAL VITAMINS W/ FOLIC ACID TABLET (FP) PO SCH (10:09)
[2022-01-20] MEDS: ASPIRIN 81 MG CHEWABLE TABLETS PO SCH (10:09)
[2022-01-20] MEDS: NICOTINE 21 MG/24 HOURS TOPICAL PATCH TD SCH (10:09)
[2022-01-20] MEDS: NICOTINE 10 MG CARTRIDGE (INHALER) IH PRN (10:12)
[2022-01-20] MEDS: IBUPROFEN 600 MG TABLET (FP) PO PRN ×2 (14:08→22:07)
[2022-01-20] MEDS: CHLORHEXIDINE GLUCONATE 0.12% 15ML CUP MM SCH ×2 (16:24→21:40)
[2022-01-20] MEDS: MAGNESIUM HYDROX 2400MG/30ML ORAL SUSPENSION 30 ML CUP PO PRN (18:33)
[2022-01-20] MEDS: MELATONIN 5 MG TABLETS PO SCH (21:40)
[2022-01-20] MEDS: THIAMINE HCL 100 MG TABLET (FP) PO SCH (21:40)
[2022-01-21] MEDS ORDERED: methaDONE HCL 10 MG TABLET ONE (03:46)
[2022-01-21] MEDS ORDERED: methaDONE HCL 40 MG DISPERSABLE TABLET ONE (03:46)
[2022-01-21] MEDS: IBUPROFEN 400 MG TABLET (FP) PO PRN (05:53)
[2022-01-21] MEDS: PRENATAL VITAMINS W/ FOLIC ACID TABLET (FP) PO SCH (09:54)
[2022-01-21] MEDS: ASPIRIN 81 MG CHEWABLE TABLETS PO SCH (09:55)
[2022-01-21] MEDS: NICOTINE 21 MG/24 HOURS TOPICAL PATCH TD SCH (09:55)
[2022-01-21] MEDS: NICOTINE 10 MG CARTRIDGE (INHALER) IH PRN (09:56)
[2022-01-21] MEDS: CHLORHEXIDINE GLUCONATE 0.12% 15ML CUP MM SCH ×2 (09:56→21:15)
[2022-01-21] MEDS: BENZOCAINE 20 % GEL TUBE MM PRN (09:57)
[2022-01-21] MEDS ORDERED: SODIUM PHOSPHATE/NA BIPHOS 133 ML ENEMA RC ONE (12:46)
[2022-01-21] MEDS: DOCUSATE SODIUM 100 MG CAPSULE (FP) PO SCH ×2 (14:36→21:14)
[2022-01-21] MEDS: THIAMINE HCL 100 MG TABLET (FP) PO SCH (21:14)
[2022-01-21] MEDS: MELATONIN 5 MG TABLETS PO SCH (21:15)
[2022-01-21] MEDS: IBUPROFEN 600 MG TABLET (FP) PO PRN (21:16)
[2022-01-21] MEDS: AMOXICILLIN 500 MG CAPSULE (FP) PO SCH (21:27)
[2022-01-22] MEDS ORDERED: methaDONE HCL 40 MG DISPERSABLE TABLET ONE (03:46)
[2022-01-22] MEDS ORDERED: methaDONE HCL 10 MG TABLET ONE (03:46)
[2022-01-22] MEDS: DOCUSATE SODIUM 100 MG CAPSULE (FP) PO SCH ×3 (05:51→21:13)
[2022-01-22] MEDS: IBUPROFEN 400 MG TABLET (FP) PO PRN (05:51)
[2022-01-22] MEDS: PRENATAL VITAMINS W/ FOLIC ACID TABLET (FP) PO SCH (09:56)
[2022-01-22] MEDS: ASPIRIN 81 MG CHEWABLE TABLETS PO SCH (09:56)
[2022-01-22] MEDS: AMOXICILLIN 500 MG CAPSULE (FP) PO SCH ×3 (09:56→21:13)
[2022-01-22] MEDS: NICOTINE 10 MG CARTRIDGE (INHALER) IH PRN (09:56)
[2022-01-22] MEDS: NICOTINE 21 MG/24 HOURS TOPICAL PATCH TD SCH (09:57)
[2022-01-22] MEDS: CHLORHEXIDINE GLUCONATE 118 ML MOUTHWASH MM SCH ×2 (11:15→21:12)
[2022-01-22] MEDS: THIAMINE HCL 100 MG TABLET (FP) PO SCH (21:12)
[2022-01-22] MEDS: MELATONIN 5 MG TABLETS PO SCH (21:13)
[2022-01-23] MEDS ORDERED: methaDONE HCL 10 MG TABLET ONE (04:01)
[2022-01-23] MEDS ORDERED: methaDONE HCL 40 MG DISPERSABLE TABLET ONE (04:01)
[2022-01-23] MEDS: DOCUSATE SODIUM 100 MG CAPSULE (FP) PO SCH (05:55)
[2022-01-23] MEDS: AMOXICILLIN 500 MG CAPSULE (FP) PO SCH (05:55)
[2022-01-23] MEDS: IBUPROFEN 400 MG TABLET (FP) PO PRN (05:58)
[2022-01-23 06:58] VITALS: BP 107/69; PULSE 76; TEMP 98
[2022-01-23] MEDS: CHLORHEXIDINE GLUCONATE 118 ML MOUTHWASH MM SCH (09:21)
[2022-01-23] MEDS: BENZOCAINE 20 % GEL TUBE MM PRN (09:21)
[2022-01-23] MEDS: PRENATAL VITAMINS W/ FOLIC ACID TABLET (FP) PO SCH (09:21)
[2022-01-23] MEDS: ASPIRIN 81 MG CHEWABLE TABLETS PO SCH (09:21)
[2022-01-23] MEDS: NICOTINE 10 MG CARTRIDGE (INHALER) IH PRN (09:22)
[2022-01-23] MEDS: NICOTINE 21 MG/24 HOURS TOPICAL PATCH TD SCH (09:48)
== END 2022-01-23 09:30 | disposition home or self-care (01) | DRG 772 ==
LOC: YASAS 18:49 → Y3E 01-09 02:19 → Y5N 01-11 14:17
PROVIDERS: ADMIT Allergy & Immunology; ATTEND Allergy & Immunology
PROC: HZ42ZZZ Group Counseling for Substance Abuse Treatment, Cognitive-Behavioral (ICD-10-PCS; principal; 2022-01-09)
DX: F11.20 Opioid dependence, uncomplicated (principal); F14.20 Cocaine dependence, uncomplicated; F17.210 Nicotine dependence, cigarettes, uncomplicated; D75.839 Thrombocytosis, unspecified; Z90.81 Acquired absence of spleen; Z28.310 Unvaccinated for COVID-19
CPT/HCPCS: 36415; 80053; 80076; 81003; 85027; 86780; 86803; 87389; 87522; 93005; 93010; C9803-CS; U0003; U0005

== ENCOUNTER 2022-08-08 17:51 | Inpatient (IN) | payer OTHER ==
[2022-08-08 18:36] VITALS: BMI 20.5
[2022-08-08] MEDS ORDERED: BENZOCAINE/MENTHOL (CHLORASEPTIC ) LOZENGE MM PRN (21:48)
[2022-08-08] MEDS ORDERED: BISMUTH SUBSALICYLATE 524 MG/30 ML PO PRN (21:48)
[2022-08-08] MEDS ORDERED: methaDONE HCL 10 MG TABLET (FOR DETOX USE ONLY) PO ONE (21:48)
[2022-08-08] MEDS ORDERED: ACETAMINOPHEN 325 MG TABLET (FP) PO PRN ×2 (21:48)
[2022-08-08] MEDS ORDERED: NALOXONE HCL (KLOXXADO) 8 MG SPRAY NS PRN (21:48)
[2022-08-08] MEDS ORDERED: MAG HYDROX/AL HYDROX/SIMETH 30 ML UNIT-DOSE CUP PO PRN (21:48)
[2022-08-08] MEDS ORDERED: ONDANSETRON *ODT* 4 MG TABLET SL PRN (21:48)
[2022-08-08] MEDS ORDERED: LOPERAMIDE HCL 2 MG CAPSULE PO PRN (21:48)
[2022-08-08] MEDS ORDERED: POLYETHYLENE GLYCOL (HEALTHYLAX) 3350 17 GM PACKET PO PRN (21:48)
[2022-08-08] MEDS ORDERED: MAGNESIUM HYDROX 2400MG/30ML ORAL SUSPENSION 30 ML CUP PO PRN (21:48)
[2022-08-08] MEDS ORDERED: IBUPROFEN 600 MG TABLET (FP) PO PRN (21:48)
[2022-08-08] MEDS ORDERED: cloNIDine HCL 0.1 MG TABLET PO PRN (21:48)
[2022-08-08] MEDS ORDERED: diazePAM 5 MG TABLET PO PRN (21:48)
[2022-08-08] MEDS ORDERED: DICYCLOMINE HCL 10 MG CAPSULE PO PRN (21:48)
[2022-08-08] MEDS ORDERED: IBUPROFEN 400 MG TABLET (FP) PO PRN (21:48)
[2022-08-08] MEDS ORDERED: methaDONE HCL 10 MG TABLET (FOR DETOX USE ONLY) ONE (22:20)
[2022-08-08] MEDS ORDERED: diazePAM 5 MG TABLET ONE (23:44)
[2022-08-08] MEDS ORDERED: MELATONIN 5 MG TABLETS ONE (23:44)
[2022-08-08] MEDS: MELATONIN 5 MG TABLETS PO SCH (23:47)
[2022-08-08] MEDS: THIAMINE HCL 100 MG TABLET (FP) PO SCH (23:47)
[2022-08-08] MEDS: diazePAM 5 MG TABLET PO SCH (23:48)
[2022-08-09] MEDS: diazePAM 5 MG TABLET PO SCH ×4 (05:24→22:36)
[2022-08-09] MEDS: PRENATAL VITAMINS W/ FOLIC ACID TABLET (FP) PO SCH (10:24)
[2022-08-09] MEDS: METHOCARBAMOL 500 MG TABLET PO PRN (10:25)
[2022-08-09] MEDS: NICOTINE 14 MG/24 HOURS TOPICAL PATCH TD SCH (10:26)
[2022-08-09] MEDS: NICOTINE 10 MG CARTRIDGE (INHALER) IH PRN ×2 (16:06→20:31)
[2022-08-09] MEDS: THIAMINE HCL 100 MG TABLET (FP) PO SCH (22:35)
[2022-08-09] MEDS: MELATONIN 5 MG TABLETS PO SCH (22:35)
[2022-08-10] MEDS ORDERED: diazePAM 5 MG TABLET PO SCH (06:00)
[2022-08-10 06:23] VITALS: RESP 18
[2022-08-10] MEDS: NICOTINE 10 MG CARTRIDGE (INHALER) IH PRN (07:21)
[2022-08-10 09:01] VITALS: BP 122/64; PULSE 81; TEMP 97.1
[2022-08-10] MEDS: METHOCARBAMOL 500 MG TABLET PO PRN (10:00)
[2022-08-10] MEDS ORDERED: methaDONE HCL 10 MG TABLET (FOR DETOX USE ONLY) PO ONE (10:00)
[2022-08-10] MEDS: PRENATAL VITAMINS W/ FOLIC ACID TABLET (FP) PO SCH (10:00)
[2022-08-10] MEDS: NICOTINE 14 MG/24 HOURS TOPICAL PATCH TD SCH (10:02)
[2022-08-11] MEDS ORDERED: diazePAM 5 MG TABLET PO SCH (06:00)
[2022-08-12] MEDS ORDERED: diazePAM 5 MG TABLET PO ONE (06:00)
[2022-08-12] MEDS ORDERED: methaDONE HCL 10 MG TABLET (FOR DETOX USE ONLY) PO ONE (10:00)
== END 2022-08-10 11:45 | disposition left against medical advice (07) | DRG 770 ==
LOC: YASAS 17:51 → Y6N 23:44
PROVIDERS: ADMIT Allergy & Immunology; ATTEND Family Medicine
PROC: HZ2ZZZZ Detoxification Services for Substance Abuse Treatment (ICD-10-PCS; principal; 2022-08-08)
DX: F11.23 Opioid dependence with withdrawal (principal); F10.230 Alcohol dependence with withdrawal, uncomplicated; F14.20 Cocaine dependence, uncomplicated; F12.20 Cannabis dependence, uncomplicated; F17.210 Nicotine dependence, cigarettes, uncomplicated; Z28.310 Unvaccinated for COVID-19; Z28.9 Immunization not carried out for unspecified reason
CPT/HCPCS: 93005; 93010; C9803-CS; Q0162; U0003; U0005